=== PATIENT | male | born 1940 | race Caucasian/White ===

== ENCOUNTER 2016-05-25 08:56 | Day surgery (SDC) | payer MEDICARE, OTHER ==
[~2016-05-25 08:56] MED LIST: ACETAMINOPHEN 325 MG TABLET PO PRN; ACETYLCHOLINE CHLORIDE 20 DROP KIT IO PRN; BUPIVACAINE HCL/PF 30 ML VIAL IJ PRN; CYCLOPENTOLATE HCL 20 DROP BTL RIGHTEYE PRN; DEXTROSE 5%-0.5 NORMAL SALINE 1,000 ML IV PRN; EPINEPHrine 1 MG/ML AMPUL IO PRN; HYALURONATE SODIUM 0.4 ML DISP.SYRIN IO PRN; HYALURONATE SODIUM 0.85 ML DISP.SYRIN IO PRN; LIDOCAINE HCL/PF 200 MG/5 ML AMPUL TP PRN; LIDOCAINE HCL/PF 5 ML VIAL IO PRN; NORMAL SALINE 3 ML BOX IV PRN; TETRACAINE HCL 150 DROP BTL OP PRN
--- OUTSIDE RECORDS SUMMARY | 2016-05-25 09:00 | XMS REPORT | Continuity of Care Document ---
:1940 Author Organization [employer] [place] [address] Care Team Providers Name Role Phone Unavailable Primary Care Provider Unavailable Source Comments This disclosure is being made pursuant to the [employer] program and maynot contain all information available regarding this patient.[employer] [facility] [employer] Active Allergies and Adverse Reactions Not on File Current Medications Be aware that medications may not be up to date as of this document. Alwaysverify current medications with the patient. Not on file Active Problems Not on file Social History Tobacco Use Types Packs/Day Years Used Date Never Assessed Plan of Care Health Maintenance Due Date Last Done Comments Tetanus/Pertussis (1 - Tdap) 1961 Well Adult Visit 1992 Zoster Vaccine 60+ 2002 Pneumococcal Low/Medium Risk 65+ (1 of 2 - PCV13) 06/27/2007 Colonoscopy 11/26/2011 11/25/2001 Retired-INFLUENZA VACCINE 11/07/2015 Results from Last 3 Months Not on file
--- OUTSIDE RECORDS SUMMARY | 2016-05-25 09:01 | XMS REPORT | Continuity of Care Document ---
:1940 Author Organization [facility] ([facility]) Address [address] [place] [address] Phone [phone] Care Team Providers Name Role Phone Benji Coley Jessenia Primary Care Provider [phone] Source Comments This disclosure is being made pursuant to the Care Everywhere program, applicable federal and state laws, and may not contain all informaitonavailable regarding this patient.[facility] ([facility]) Active Allergies and Adverse Reactions Allergen Noted Date Severity Reactions Comments Penicillins Urticaria (Hives) Current Medications Prescription Sig. Disp. Refills Start Date End Date Status aspirin 325 mg tablet take 1 Tab by Active mouth daily. gabapentin 300 mg Take 1 Cap (300 mg 90 Cap 08/24/2014 Active capsule total) by mouth 3 times daily metFORMIN 500 mg Take 1 tablet (500 60 tablet 05/31/2015 Active tablet mg total) by mouth 2 times daily with meals. metoPROLol succinate Take 1 tablet (50 30 tablet 11/29/2015 Active 50 mg XL tablet mg total) by mouth daily. LEVOTHYROXINE 200 mcg TAKE ONE TABLET BY 30 tablet 12/25/2015 Active tablet MOUTH IN THE MORNING WITH BREAKFAST doxazosin 4 mg tablet Take 1.5 tablets 45 tablet 01/17/2016 Active (6 mg total) by mouth at bedtime. ATORVASTATIN 40 mg TAKE ONE TABLET BY 30 tablet 03/18/2016 Active tablet MOUTH ONCE DAILY rOPINIRole 2 mg tablet Take 1 tablet (2 30 tablet 03/27/2016 Active mg total) by mouth at bedtime. isosorbide mononitrate Take 1 tablet (60 30 tablet 03/27/2016 Active 60 mg CR tablet mg total) by mouth every morning. TRAZODONE 50 mg tablet TAKE ONE TABLET BY 30 tablet 04/23/2016 Active MOUTH AT BEDTIME SERTraline 100 mg Take 1 tablet (100 30 tablet 04/24/2016 Active tablet mg total) by mouth daily. nitroglycerin 0.[address] 1 tablet 25 tablet 11 05/15/2016 Active SL tablet (0.4 mg total) under the tongue every 5 minutes as needed. Maximum of 3 tablets in 15 minutes. Active Problems Problem Noted Date CAD (coronary artery disease) 01/29/2014 Overview: PCI to OM2 (MARK) in 2003 Myocardial perfusion scan 01/2014: moderate to large size, moderate severity fixed defect within the inferior wall and very small, very mild reversible defect near the apex. Essential hypertension, benign 01/29/2014 Hyperlipidemia 01/29/2014 Hypothyroidism 01/29/2014 Type 2 diabetes mellitus 01/29/2014 Occlusion and stenosis of carotid artery without mention of cerebral 2007 infarction Resolved Problems Problem Noted Date Resolved Date Coronary atherosclerosis of unspecified type of vessel, 08/11/2007 01/29/2014 [place] or graft Coronary atherosclerosis of [place] coronary artery 08/11/2007 01/29/2014 Most Recent Encounters Date Type Specialty Providers Description 05/15/2016 Office Visit Benji Heml Dx: Cataract of right eye Primary A, DO (Primary Dx) 04/24/2016 Office Visit Benji Helm Dx: Chronic pain of left Primary A, DO knee (Primary Dx) 04/23/2016 Refill Benji Helm Dx: Neuropathic pain, leg, Primary A, DO unspecified laterality (Primary Dx) 03/27/2016 Office Visit Benji Helm Dx: Restless legs syndrome Primary A, DO (RLS) (Primary Dx) 03/24/2016 Refill Benji Helm Dx: Neuropathic pain of Primary A, DO both legs (Primary Dx) 03/17/2016 Refill Benji Helm Dx: Pure Primary A, DO hypercholesterolemia (Primary Dx) 03/13/2016 Office Visit Benji Helm Chief Comp: Patient Primary A, DO Reported Reason For Visit Immunizations Name Dates Previously Given Next Due Influenza, PF 03/15/2013 Influenza, quadrivalent PF 01/17/2016,03/15/2015,01/10/2014 Influenza, unspecified 01/10/2014 Pneumococcal Polysaccharide, PPSV23 03/15/2013 (Pneumovax 23) Social History Tobacco Use Types Packs/Day Years Used Date Former Smoker Quit: 03/08/1999 Alcohol Use Drinks/Week oz/Week Comments Yes Last Filed Vital Signs Vital Sign Reading Time Taken Blood Pressure 110/58 05/15/2016 8:27 AM PUBLIC INFORMATION COORDINATOR Pulse 88 05/15/2016 8:27 AM PUBLIC INFORMATION COORDINATOR Temperature 36.1 C (97 F) 05/15/2016 8:27 AM PUBLIC INFORMATION COORDINATOR Respiratory Rate 18 05/15/2016 8:27 AM PUBLIC INFORMATION COORDINATOR Height 1.829 m (6') 07/02/2014 10:13 AM CDT Weight 105.597 kg (232 lb 12.8 oz) 05/15/2016 8:27 AM PUBLIC INFORMATION COORDINATOR Body Mass Index 31.57 05/15/2016 8:27 AM PUBLIC INFORMATION COORDINATOR Oxygen Saturation 98% 07/02/2014 10:13 AM CDT Plan of Care Health Maintenance Due Date Last Done Comments Hepatitis B Vaccine (1 of 3 - 1940 Primary Series) Tdap Vaccine 1953 DIABETIC: Microalbumin 1960 Td Vaccine 1960 Prostate Cancer Screening 1992 Zoster Vaccine 2002 DIABETIC: Cholesterol 12/13/2009 12/13/2008, Additional history exists 08/11/2007, 07/01/2006 Diabetic: Hdl 12/13/2009 12/13/2008, Additional history exists 08/11/2007, 07/01/2006 Diabetic: Ldl 12/13/2009 12/13/2008, Additional history exists 08/11/2007, 07/01/2006 DIABETIC: Triglycerides 12/13/2009 12/13/2008, Additional history exists 08/11/2007, 07/01/2006 DIABETIC: Foot Exam 01/29/2014 DIABETIC: Retinal Eye Exam 01/29/2014 Pneumococcal Vaccine (2 of 2 03/15/2014 03/15/2013 - PCV13) DIABETIC: Hemoglobin A1C 02/23/2015 08/24/2014, 11/25/2005, 10/31/2003 Colonoscopy 01/28/2016 01/27/2006 Influenza Vaccine: Seasonal Completed 01/17/2016, Additional history exists 03/15/2015, 01/10/2014 Results from Last 3 Months Not on file
[2016-05-25] MEDS: PHENYLEPHRINE HCL 50 DROP BTL RIGHTEYE PRN ×3 (09:20→09:48)
[2016-05-25] MEDS: TROPICAMIDE 150 DROP BTL RIGHTEYE PRN ×3 (09:20→09:48)
[2016-05-25] MEDS ORDERED: RINGERS SOLUTION,LACTATED 1,000 ML IV ONE (09:55)
[2016-05-25 11:51] VITALS: BP 120/70
== END 2016-05-25 08:57 | disposition home or self-care (01) ==
LOC: AMB 08:56
PROVIDERS: ATTEND Ophthalmology
PROC: 08RJ3JZ Replacement of Right Lens with Synthetic Substitute, Percutaneous Approach (ICD-10-PCS; principal; 2016-05-25 10:15)
DX: H26.9 Unspecified cataract (principal); I10 Essential (primary) hypertension; E11.9 Type 2 diabetes mellitus without complications; I25.10 Atherosclerotic heart disease of native coronary artery without angina pectoris; E78.5 Hyperlipidemia, unspecified; E03.9 Hypothyroidism, unspecified; Z87.891 Personal history of nicotine dependence; Z68.31 Body mass index [BMI] 31.0-31.9, adult

== ENCOUNTER 2019-01-16 06:32 | Inpatient (IN) ==
--- NOTE | 2018-12-28 14:00 | ANES ---
Anesthesia Pre Procedure Eval HOME MEDICATIONS Aspirin 325 mg PO DAILY 11/01/15 [Last Taken 09/15/18] atorvastatin 20 mg tablet 20 mg PO HS #90 tab 07/28/18 [Last Taken 09/14/18] nitroglycerin 0.4 mg sublingual tablet 0.4 mg SL Q5-15M PRN #30 tab 07/28/18 [Last Taken Unknown] doxazosin 4 mg tablet See Rx Instructions .ROUTE .COMPLEX #135 cap 08/05/18 [Last Taken 09/14/18] oxybutynin chloride 5 mg tablet,extended release 24 hr 5 mg PO DAILY #90 tab 11/09/18 [Last Taken Unknown] levothyroxine 175 mcg tablet 175 mcg PO DAILY #90 cap 11/10/18 [Last Taken Unknown] isosorbide mononitrate 60 mg tablet,extended release 24 hr 60 mg PO DAILY #90 cap 12/05/18 [Last Taken Unknown] metoprolol succinate 50 mg tablet,extended release 24 hr 50 mg PO DAILY #90 cap 12/05/18 [Last Taken Unknown] sertraline 100 mg tablet 100 mg PO DAILY #90 cap 12/05/18 [Last Taken Unknown] gabapentin 600 mg tablet See Rx Instructions .ROUTE .COMPLEX #270 capsule 12/08 [Last Taken Unknown] Ropinirole HCl [Requip Xl] 2 mg PO BID 12/28/18 [Last Taken Unknown] Allergies/Adverse Reactions: Allergies Allergy/AdvReac Type Severity Reaction Status Date / Time Penicillins Allergy Mild Hives Verified 12/28/18 08:32 - Planned Procedure Planned Procedure: Right Arthroplasty Total Hip Medication List Reviewed:: Yes Allergies Verified: Yes Medical History (Last Reviewed 12/28/18 @ 13:59 by Tam Villagomez CRNA) Osteoarthritis of hip (Chronic) Fever blister (Acute) Onset Date: Unknown Sinusitis, acute (Acute) Onset Date: Unknown Benign non-nodular prostatic hyperplasia with lower urinary tract symptoms Onset Date: 2017 Bilateral knee pain Onset Date: Unknown Coronary artery disease Onset Date: Unknown Depression Onset Date: 2016 Diabetes mellitus, type II Onset Date: Unknown Essential hypertension Onset Date: 2017 Hypertension Onset Date: Unknown Hypothyroidism Onset Date: Unknown Insomnia Onset Date: 2017 Iron deficiency Onset Date: 2017 Obesity (BMI 30-39.9) Onset Date: 2017 obesity class I Peripheral neuropathy Onset Date: 2017 Primary osteoarthritis involving multiple joints Onset Date: 2017 Primary osteoarthritis of both knees Onset Date: 2016 RLS (restless legs syndrome) Onset Date: 2016 Vitamin B 12 deficiency Onset Date: 2016 hyperlipidemia Onset Date: Unknown Surgical History (Last Reviewed 12/28/18 @ 13:59 by Tam Villagomez CRNA) History of heart surgery Onset Date: ~1989 History of incision and drainage Onset Date: 2007--with exam under anesthesia rt. leg History of stress test Onset Date: 2017 Stent Onset Date: ~1989 - 1 cholecystecomy Onset Date: 1999 [place] femur fx Onset Date: Unknown pin on left incision and debridement Onset Date: 2007--rt calf abscess knee replacement, left Onset Date: [address] [place] History of right knee joint replacement Onset Date: 2009 [facility] Family History (Last Reviewed 12/28/18 @ 13:59 by Tam Villagomez CRNA) Father Heart disease Skin cancer empha Mother , old age Medical history unknown - Family Anesthesia History Family History:: no untoward family reactions to anesthesia - Airway/Neck/Teeth Denture Type: Full upper, Full lower Neck Exam: limited range of motion Mallampatti Score: 3 Thyromental (T-M) distance: > 6 cm Mandibulo Hyoid distance: > 3 cm - Respiratory Respiratory Physical: lungs clear Smoking Status: Former smoker Sleep Apnea currently treated: No Sleep Apnea by current assessment: No - Cardiovascular Cardiac History: [place], CAD, hypertension Tolerate Activity: Fair Heart Sounds: S1 & S2, Regular - Anesthesia Assessment and Plan ASA Class: PS, III Anesthesia Type Plan: Spinal Planned difficult intubation/equipment available: No
[~2019-01-16 06:32] MED LIST changes: -ACETAMINOPHEN 325 MG TABLET PO PRN; -ACETYLCHOLINE CHLORIDE 20 DROP KIT IO PRN; -BUPIVACAINE HCL/PF 30 ML VIAL IJ PRN; -CYCLOPENTOLATE HCL 20 DROP BTL RIGHTEYE PRN; -DEXTROSE 5%-0.5 NORMAL SALINE 1,000 ML IV PRN; -EPINEPHrine 1 MG/ML AMPUL IO PRN; -HYALURONATE SODIUM 0.4 ML DISP.SYRIN IO PRN; -HYALURONATE SODIUM 0.85 ML DISP.SYRIN IO PRN; -LIDOCAINE HCL/PF 200 MG/5 ML AMPUL TP PRN; -LIDOCAINE HCL/PF 5 ML VIAL IO PRN; +MORPHINE SULFATE 15 MG TABLET.SA PO PRN; -NORMAL SALINE 3 ML BOX IV PRN; +RINGER'S SOLUTION,LACTATED 1,000 ML IV PRN; +ROPIVACAINE HCL/PF 100 MG, EPINEPHrine 0.2 MG, KETOROLAC TROMETHAMINE 30 MG in NORMAL S... IJ PRN; -TETRACAINE HCL 150 DROP BTL OP PRN; +TRANEXAMIC ACID 1,000 MG in NORMAL SALINE 100 ML IV PRN; +VANCOMYCIN HCL 1 GM in DEXTROSE 5 % IN WATER 250 ML IV PRN; +ceFAZolin SODIUM 1 GM VIAL IV PRN
[2019-01-16] MEDS ORDERED: LIDOCAINE HCL 20 ML VIAL ONE (07:37)
[2019-01-16] MEDS ORDERED: fentaNYL CITRATE/PF 50 MCG/ML AMPUL ONE (07:37)
[2019-01-16] MEDS ORDERED: ONDANSETRON HCL/PF 2 MG/ML VIAL ONE (07:38)
[2019-01-16] MEDS ORDERED: PROPOFOL VIAL IV ONE (07:38)
[2019-01-16] MEDS ORDERED: ZOLPIDEM TARTRATE 5 MG TABLET PO PRN (09:58)
[2019-01-16] MEDS ORDERED: MAG HYDROX/ALUMINUM HYD/SIMETH 30 ML UDC PO PRN (09:58)
[2019-01-16] MEDS ORDERED: MORPHINE SULFATE 2 MG/ML DISP.SYRIN IV PRN (09:58)
[2019-01-16] MEDS ORDERED: ONDANSETRON HCL/PF 2 MG/ML VIAL IV PRN (09:58)
[2019-01-16] MEDS ORDERED: ACETAMINOPHEN 500 MG TABLET PO PRN (09:58)
[2019-01-16] MEDS ORDERED: MAGNESIUM HYDROXIDE 30 ML UDC PO PRN (09:58)
[2019-01-16] MEDS ORDERED: diphenhydrAMINE HCL 50 MG/ML VIAL IV PRN (09:58)
[2019-01-16] MEDS ORDERED: DEXTROSE 5%-LACTATED RINGERS 1,000 ML IV PRN (09:58)
[2019-01-16] MEDS ORDERED: NITROGLYCERIN 0.4 MG/TAB BTL SL PRN (10:00)
--- NOTE | 2019-01-16 10:04 | OR ---
Operative Report - Dictated Report Narrative: Date: 01/16/2019 Preoperative diagnosis: Right hip degenerative joint disease. Postoperative diagnosis: Right hip degenerative joint disease. Procedure: Right total hip arthroplasty. Surgeon: Catracho Bradford M.D. Telephone Appointment Clerk: Lio Tellez PA-C (provided an essential set of skilled, educated and assisted with transfer, positioning, prepping, draping, manipulation, traction, irrigation, suturing, and placement of dressings all of which cannot be performed by the available surgical crew) Anesthesia: Spinal and local periarticular joint injection. Complications: None Specimens: Bone. Estimated blood loss: 200 milliliters. Retained implants: Depuy [place] size 5 femoral stem standard offset. Size 58 millimeter outside diameter 3-hole [place] Gription acetabular cup. 58 millimeter outside by 40 millimeter inside diameter highly cross-linked acetabular liner. 40 millimeter diameter +1.5 millimeter cobalt chromium femoral head. Cancellous 6.5mm screw 30 millimeter length Indications: Mr. Mackenzie is a 78-year-old gentleman who has had long-standing right hip pain and arthrosis. This patient was followed in my clinic for period of time with significant complaints of right hip pain consistent with arthritic changes. He failed conservative measures including but not limited to activity modification, passage of time, medications, and other conservative measures. Patient wished to proceed with surgical treatment. The risks, benefits, and alternatives were discussed in clinic. The risks of , blood clots, bleeding, infection, nerve/tendon blood vessel/ injury, malposition of components, dislocation and/or instability of joint, intraoperative fracture, postoperative limited range of motion, persistent pain, failure of components, and need for additional procedures. Patient wished to proceed. Consent was obtained after answering all questions. Procedure: After marking the correct extremity on the floor, the patient was taken to the operating room. A timeout was performed. IV antibiotics consisting of Ancef and vancomycin secondary to MRSA screening were administered prior to the procedure. A spinal anesthetic was induced by anesthesia. A Gonzalez catheter was inserted. The patient was then transitioned to a lateral position on a well-padded pegboard. An axillary roll was placed. The head was in neutral position. The non-operative down leg was well-padded with SCD and DAVID hose in place. The arms were supported and padded to protect from any undue pressure on the bony prominences and nerves. A well-padded anterior and posterior pelvic and chest posts were secured in order to maintain a stable position of the pelvis. This was placed so that the pelvis was perpendicular to the floor. The body was in line with the pelvis. Once it was felt that we had protected all the bony prominences and the patient was well secured with a safety belt as well, the leg was pre-scrubbed with alcohol, prepped and draped in a standard sterile fashion. A standard anterior lateral hip incision was marked out over the greater tr ochanter. Ioban drapes were then placed. The skin incision was then made. Sharp dissection with a scalpel utilizing cautery for hemostasis was carried out down to the gluteus and iliotibial band fascia. This was split in line with the skin incision. The greater trochanter bursa was excised. The anterior and posterior margins of the abductor tendon were identified. The anterior 1/2-1/3 of the tendon was tagged and reflected off the greater trochanter leaving a sleeve of tendon for repair at the completion of the case. This exposed the underlying hip joint capsule. A limb length stitch was placed in the skin and referencedd off a justin on the greater trochanter for evaluation of intraoperative limb lengths. An inverted T-type capsulotomy was made extending this up to the brim of the acetabulum. Using Homans to assist with elevation of the soft tissues off the anterior, superior, and inferior aspects of the femoral neck, the hip was then placed in a figure 4 position and the femoral head was dislocated. With the leg in an externally rotated and adducted position, the cutting flag was utilized in order to justin for a standard femoral neck cut approximately a fingerbreadth above the level of the lesser trochanter. This was done with reference to pre-operative films and overall alignment. This was done while protecting the surrounding soft tissues with Homans. The femoral head was then removed and sized for guidance on preparation of the acetabulum. It was noted that there was loss of articular cartilage on both the femoral head and weightbearing portions of the acetabulum. We then returned the leg to the table and turned our attention to the acetabulum. While protecting the surrounding soft tissues, the labrum and remaining tissue in the fovea were excised using a scalpel and cautery. A series of reamers up to size 58 millimeter were utilized to prepare the acetabulum. The final reamer had good purchase and exposed the bleeding subchondral bone. The acetabulum was then thoroughly irrigated ensuring that all bony and cartilaginous materials were removed, and the final acetabular shell was impacted into place. This was placed in approximately 45 degrees of abduction and 20 degrees of anteversion utilizing the outrigger and body axis for alignment. This had a good press fit. 1 6.5mm cancellous screw was placed in the superior posterior quadrant of the acetabulum. The shell was then thoroughly irrigated and the final polyethylene was impacted into place ensuring that it seated completely. This was then protected with a sponge while we returned our attention to the femur. With the leg in a figure 4 position, utilizing Homans for soft tissue protection, a box cutting osteotome, followed by Charnley awl, followed by serial reamers and broaches were utilized in order to prepare the femur. It was found that a size 5 broach gave good axial and rotational stability. The calcar reamer was utilized in order to clean up the cut edges. The proximal femur was visualized to ensure that there were no signs of fracture. A series of heads and necks were trialed. It was found that a standard offset neck and a + 1.5 femoral head gave good overall stability. There was minimal longitudinal instability. With the leg in the position of sleep, the femoral head was well covered. Hip range of motion was able to reach full extension and external rotation to greater than 75 degrees prior to impingement along the posterior acetabulum. The hip was able to be flexed to greater than 90 degrees with internal rotation greater than 60 degrees prior to anterior impingement. The limb lengths were near equal based on comparison to the contralateral side and the prior placed limb length stitch. At this point it was felt these were the appropriately sized femoral components as well as neck and femoral head. The trial implants were removed. The femur was thoroughly irrigated. The final implants were impacted into place, and the hip was reduced. After ensuring that there was no damage to the proximal femur, the standard periarticular joint injection of ropivacaine, Toradol, and epinephrine were injected into the joint capsule and surrounding soft tissues. Anesthesia then administered intravenous tranexamic acid. The capsule was repaired with a single interrupted #1 Vicryl. The abductor tendon was repaired to the greater trochanter utilizing #5 Ethibond through drill holes. This was oversewn with #1 Vicryl. The fascia was closed with interrupted #1 Vicryl and running strata fix barbed suture. The wounds were thoroughly irrigated as we closed in layers. The deep and subcutaneous fat layers were closed with 0 and 3-0 Vicryl respectively. The subcutaneous tissue was closed with a running 3-0 Vicryl and the skin kelvin. All sponge, needle, blade, and instrument counts were correct prior to closing the wounds. Sterile dressings consisting of xeroform, 4 x 4's, and tape were applied. The patient was awoken and transferred to her hospital bed and then to the postanesthesia care unit in stable condition. Postoperative condition: The plan is to admit to the medical/surgical inpatient floor postoperatively. There will be a projected 1 to 3 day hospital stay. Postoperatively 24 hours of IV antibiotics, pain control, physical therapy, occupational therapy, and medical comanagement will be utilized. Patient will be weightbearing as tolerated with anterior hip precautions. Postoperative films will be obtained in the recovery room.
--- NOTE | 2019-01-16 10:20 | ANES ---
Post Anesthesia Discharge - Transfer of Care Transfer of Care handoff given to nurse: Yes - Discharge from PACU Discharge from PACU when meets criteria: Yes - Discharge to ASU Discharge to ASU-no complications/pt stable: Yes
[2019-01-16] MEDS: KETOROLAC TROMETHAMINE 15 MG/ML VIAL IV SCH ×3 (11:30→23:35)
--- NOTE | 2019-01-16 12:58 | ANES ---
Post Anesthesia Assessment - Vital Signs Vitals: Last Vital Signs Temp 36.4 C 01/16/19 10:28 Pulse 58 L 01/16/19 10:28 Resp 16 01/16/19 10:28 BP 133/83 01/16/19 10:28 Pulse Ox 95 01/16/19 10:28 Airway Patency: Normal - Mental Status Level Of Consciousness: Awake - Pain Level Pain Score: 0 - N/V Assessment Nausea/Vomiting Presence: None Dehydration:: No
[2019-01-16] MEDS: GABAPENTIN 600 MG TABLET PO SCH ×2 (13:59→17:35)
[2019-01-16] MEDS: oxyCODONE HCL/ACETAMINOPHEN 1 TAB TABLET PO PRN ×2 (17:35→22:01)
[2019-01-16] MEDS ORDERED: VANCOMYCIN HCL 1 GM in DEXTROSE 5 % IN WATER 250 ML IV SCH ×2 (19:58)
[2019-01-16] MEDS ORDERED: ROSUVASTATIN CALCIUM 10 MG TABLET PO SCH (21:00)
[2019-01-16] MEDS ORDERED: SENNOSIDES/DOCUSATE SODIUM 1 TAB TABLET PO SCH (21:00)
[2019-01-16] MEDS ORDERED: DOXAZOSIN MESYLATE 2 MG TABLET PO SCH (21:00)
[2019-01-16] MEDS: MORPHINE SULFATE 15 MG TABLET.SA PO SCH (22:01)
[2019-01-16] MEDS: rOPINIRole HCL 1 MG TABLET PO SCH (22:01)
[2019-01-17] MEDS: KETOROLAC TROMETHAMINE 15 MG/ML VIAL IV SCH ×2 (04:42→10:36)
[2019-01-17 06:32] LABS: Hematocrit 36.9 % (42.0-52.0); Hemoglobin 12.3 gm/dL (13.5-18.0); Mean Cell Volume 85.2 fl (78-100); Mean Corpuscular Hemoglobin 28.4 pg (27-31); Mean Corpuscular Hgb Conc 33.3 g/dl (32-36); Mean Platelet Volume 9.7 fl (8-11.3); Platelet Count 104 K/mm3 (150-450); Red Blood Count 4.33 M/mm3 (4.7-6.0); Red Cell Distribution Width 13.7 % (11.5-14.0); White Blood Count 5.8 K/mm3 (4.0-10.5)
[2019-01-17 06:54] LABS: Anion Gap 10.6 mmol/L (6.8-13.8); BUN/Creatinine Ratio 11.2 (9.0-21.6); Calcium * 7.8 mg/dL (7.9-10.9); Estimated Creat Clear 64.6; Potassium 4.6 mmol/L (3.4-4.6)
[2019-01-17] MEDS: oxyCODONE HCL/ACETAMINOPHEN 1 TAB TABLET PO PRN ×2 (06:54→13:34)
[2019-01-17] MEDS ORDERED: LEVOTHYROXINE SODIUM 175 MCG TABLET PO SCH (07:00)
[2019-01-17] MEDS ORDERED: ENOXAPARIN SODIUM 40 MG/0.4 ML SYRG SC SCH (08:58)
[2019-01-17] MEDS ORDERED: SERTRALINE HCL 100 MG TABLET PO SCH (09:00)
[2019-01-17] MEDS ORDERED: METOPROLOL SUCCINATE 50 MG TABLET.SA PO SCH (09:00)
[2019-01-17] MEDS ORDERED: FLU VACC QS2019-20(6MOS UP)/PF 60 MCG/0.5 ML SYRINGE IM ONE (09:00)
[2019-01-17] MEDS ORDERED: DULoxetine HCL 30 MG CAPSULE.SA PO SCH (09:00)
[2019-01-17] MEDS ORDERED: ISOSORBIDE MONONITRATE 60 MG TAB.SR.24H PO SCH (09:00)
[2019-01-17] MEDS ORDERED: OXYBUTYNIN CHLORIDE 5 MG TABLET PO SCH (09:00)
[2019-01-17] MEDS: rOPINIRole HCL 1 MG TABLET PO SCH (09:23)
[2019-01-17] MEDS: GABAPENTIN 600 MG TABLET PO SCH (09:23)
[2019-01-17] MEDS: MORPHINE SULFATE 15 MG TABLET.SA PO SCH (09:28)
--- NOTE | 2019-01-17 11:39 | DS ---
(1) Osteoarthritis of right hip Problem: Chronic (2) Status post right hip replacement Problem: Acute (3) Acute blood loss anemia Problem: Acute (4) Coronary artery disease Problem: Chronic (5) Hyperlipidemia Problem: Chronic (6) Hypertension Problem: Chronic (7) Type 2 diabetes mellitus Problem: Chronic Date of Discharge:: 01/17/19 Description of Stay: Mr. Mackenzie was admitted to the floor after undergoing right total hip arthroplasty. Tolerated this well. Was admitted to the floor postoperatively for 24 hours of IV antibiotics, pain control, medical comanagement, and occupational and physical therapy. OT and PT were consulted to assist with activities of daily living and ambulation. Was made weightbearing as tolerated with range of motion as tolerated. Pain was initially controlled with IV regimen. This was transitioned to oral once tolerating a by mouth intake. Was resumed on home diet and medications. Had a Gonzalez catheter inserted and the operating room which was discontinued on postoperative day 1. Lovenox SCD and DAVID hose were utilized for DVT prophylaxis. Vital signs remained stable to the hospital course. Serial labs were obtained which showed a final hemoglobin of 12.3 grams down from 14.4 g preoperatively . BMP was reviewed and was stable. Physical examination throughout the hospital course showed an extremity that had sensation that was intact to light touch, palpable pulses, a benign wound, motor intact to the toes, ankle, and knee. Once an oral pain regimen was tolerated and physical therapy goals were met, it was felt that they were stable for discharge to home. Instructions: Continue with weightbearing as tolerated and range of motion as tolerated. Keep wound clean and dry. If you note any drainage or for comfort you can cover with dry gauze and tape. Change every 2-3 days as needed. Continue with physical therapy. Resume home diet. Report any fever over 101.5 Fahrenheit, uncontrolled pain, increased drainage, foul odor of drainage, new or increased calf pain or shortness of breath, or any other significant complaints. A 325mg dialy aspirin will be started after finishing anticoagulation if not allergic. Continue with DAVID hose on the operative extremity until instructed otherwise. No driving until instructed otherwise. Follow up in approximately 10-14 days. Procedures Performed: see notes below List Procedures: Right total hip arthroplasty Results and Findings: Lab Pending Results 01/17/19 06:27: WBC 5.8, RBC 4.33 L, Hgb 12.3 L, Hct 36.9 L, MCV 85.2, MCH 28.4, MCHC 33.3, RDW 13.7, Plt Count 104 L, MPV 9.7 01/17/19 06:27: Sodium 134, Plasma Sodium 134, Potassium 4.6, Chloride 102, Carbon Dioxide 26.0, Anion Gap 10.6, BUN 12, Creatinine 1.07, Est GFR (Non-Af Amer) 71, BUN/Creatinine Ratio 11.2, Random Glucose 99, Calcium 7.8 L Discharge Location: Home Disposition: Home self-care Condition: Good Discharge Activity: Activity as tolerated, Weight bearing - Utilizing wheeled walker, Other - With anterior hip precautions Discharge Diet: Consistent carbs, Low salt, Low fat/chol Referrals: Catracho Bradford MD [Staff Physician] - 01/31/19 9:30 am Problem Oriented Discharge Instructions to Patient/Family: Total Hip Replacement, Care After, [id number] Additional Patient Instructions (free text): Physical Therapy appointment at [facility] outpatient rehab on WednesdayJanuary 18 at 9:45 am. Follow up Orthopedic office with Dr. Bradford on 02-07-19 at 9:30am. Prescriptions (Any new or edited meds): Enoxaparin Sodium [Lovenox] 40 mg SC Q24H #7 disp.syrin Transmission Status: Pending to [id number] oxyCODONE HCL/ACETAMINOPHEN [Percocet 5 MG/325 MG] 2 tab PO Q4H PRN #60 tab PRN Reason: Moderate Pain (Pain Scale 4-6) [id number] Sennosides/Docusate Sodium [Senokot-S] 2 tab PO HS #30 tab [facility] Status[id number] Complete Home Medications List: Complete Home Medication List: Aspirin 325 mg PO DAILY 11/01/15 atorvastatin 20 mg tablet 20 mg PO HS #90 tab 07/28/18 nitroglycerin 0.4 mg sublingual tablet 0.4 mg SL Q5-15M PRN #30 tab 07/28/18 doxazosin 4 mg tablet See Rx Instructions .ROUTE .COMPLEX #135 cap 08/05/18 oxybutynin chloride 5 mg tablet,extended release 24 hr 5 mg PO DAILY #90 tab 11/09/18 levothyroxine 175 mcg tablet 175 mcg PO DAILY #90 cap 11/10/18 isosorbide mononitrate 60 mg tablet,extended release 24 hr 60 mg PO DAILY #90 cap 12/05/18 metoprolol succinate 50 mg tablet,extended release 24 hr 50 mg PO DAILY #90 cap 12/05/18 sertraline 100 mg tablet 100 mg PO DAILY #90 cap 12/05/18 gabapentin 600 mg tablet See Rx Instructions .ROUTE .COMPLEX #270 cap 12/08/18 Ropinirole HCl [Requip Xl] 2 mg PO BID 12/28/18 mupirocin 2 % topical ointment See Rx Instructions .ROUTE .COMPLEX #15 g 01/02/19 duloxetine 60 mg capsule,delayed release 60 mg PO DAILY #90 cap 01/09/19 Enoxaparin Sodium [Lovenox] 40 mg SC Q24H #7 disp.syrin 01/17/19 Sennosides/Docusate Sodium [Senokot-S] 2 tab PO HS #30 tab 01/17/19 oxyCODONE HCL/ACETAMINOPHEN [Percocet 5 MG/325 MG] 2 tab PO Q4H PRN #60 tab 01/17/19 Amb Orders for Discharge: PT Evaluation and Treatment* Facility: [facility], Location: Rehabilitation Services
[2019-01-17 13:32] VITALS: BP 109/55
== END 2019-01-17 14:05 | disposition home or self-care (01) | DRG 470 ==
LOC: MS 06:32
PROVIDERS: ADMIT Orthopaedic Surgery; ATTEND Orthopaedic Surgery
DX: M16.11 Unilateral primary osteoarthritis, right hip; I25.10 Atherosclerotic heart disease of native coronary artery without angina pectoris; D62 Acute posthemorrhagic anemia; Z23 Encounter for immunization; E11.42 Type 2 diabetes mellitus with diabetic polyneuropathy; E78.5 Hyperlipidemia, unspecified; I10 Essential (primary) hypertension
CPT/HCPCS: 36415; 73502; 80048; 85027; 90686; 97116; 97161; 97530; J2405

== ENCOUNTER 2019-12-13 11:12 | Inpatient (IN) ==
--- NOTE | 2019-12-13 11:44 | ERNOTE ---
Medical Problem HPI - Narrative Date of Service: 12/13/19 - General Chief Complaint: General Assessment Time Seen by Provider: 12/13/19 11:24 Source: patient Exam Limitations: no limitations - Immun/Allergies/Home Medications Immunizations: IMMUNIZATION HX Immunizations Up to Date Yes History of Influenza Vaccine Yes Hx Pneumococcal Vaccination No Allergies/Adverse Reactions: Allergies Penicillins Allergy (Mild, Verified 10/30/19 13:10) Hives Home Medications: HOME MEDICATIONS Aspirin 325 mg PO DAILY 11/01/15 [Last Taken 09/29/19 08:00] atorvastatin 20 mg tablet 20 mg PO HS #90 tab 04/10/19 [Last Taken Unknown] isosorbide mononitrate 60 mg tablet,extended release 24 hr 60 mg PO DAILY #90 cap 04/10/19 [Last Taken Unknown] levothyroxine 175 mcg tablet 175 mcg PO DAILY #90 cap 04/10/19 [Last Taken Unknown] nitroglycerin 0.4 mg sublingual tablet 0.4 mg SL Q5-15M PRN #30 tab 04/10/19 [Last Taken Unknown] sennosides 8.6 mg-docusate sodium 50 mg tablet 2 tab PO HS #180 tab 04/10/19 [Last Taken Unknown] sertraline 100 mg tablet 100 mg PO DAILY #90 cap 04/10/19 [Last Taken Unknown] duloxetine 60 mg capsule,delayed release 60 mg PO DAILY #180 cap 05/10/19 [Last Taken Unknown] metoprolol succinate 25 mg tablet,extended release 24 hr 25 mg PO DAILY #90 cap 05/10/19 [Last Taken 10/01/19 08:00] ropinirole 2 mg tablet,extended release 24 hr 2 mg PO HS #180 tab 07/19/19 [Last Taken Unknown] doxazosin 4 mg tablet 4 mg PO DAILY #135 tab 11/16/19 [Last Taken Unknown] gabapentin 800 mg tablet 800 mg PO TID #180 cap 11/16/19 [Last Taken Unknown] oxybutynin chloride 5 mg tablet 5 mg PO BID #180 tab 11/16/19 [Last Taken Unknown] - Pain Score Pain Score #1 Pain Score: 0 - History of Present History Narrative: The patient is a 79 year old male who presents for dizziness and unsteady gait which has been present since yesterday. There are associated symptoms of weakness and decreased intake. The patient denies pain. There are no alleviating factors. There are no aggravating factors. Previous treatments have included: none. The past medical history includes: CAD, depression, DM, HTN, hypothyroid, anemia, osteoarthritis and HLD. The social history is positive for former smoker. The patient has had no known ill contacts. Patient states that yesterday he noticed increased dizziness with unsteady gait and frequent falls, patient states that he has fallen 2 times yesterday and then fell again this am. Patient states this am he became feeling unsteady while walking in his home, lost his balance and fell backwards landing on clothes basket. Patient denies striking head, LOC or neck pain. Review of Systems - Review of Systems Constitutional: Present: fatigue. Absent: recent illness, fever, chills EYE: Present: no symptoms reported. Absent: vision changes ENT: Present: no symptoms reported. Absent: ear pain, nasal drainage, sore throat Respiratory: Present: cough. Absent: shortness of breath Cardiology: Present: chest pain Gastrointestinal/Abdominal: Present: no symptoms reported. Absent: nausea, vomiting, diarrhea, abdominal pain Genitourinary: Present: no symptoms reported. Absent: dysuria, decreased urinary output Musculoskeletal: Present: no symptoms reported. Absent: back pain, neck pain, joint pain Skin: Present: no symptoms reported. Absent: rash Neurological: Present: dizziness/light-headedness, weakness. Absent: headache, numbness, tingling All Other Systems: All systems neg except as marked Medical History (Last Reviewed 12/13/19 @ 11:40 by AMANDA Hook) Fever blister (Acute) Onset Date: Unknown Sinusitis, acute (Acute) Onset Date: Unknown Benign non-nodular prostatic hyperplasia with lower urinary tract symptoms Onset Date: 2017 Bilateral knee pain Onset Date: Unknown Coronary artery disease Onset Date: Unknown Diabetes mellitus, type II Onset Date: Unknown Essential hypertension Onset Date: 2017 Hyperlipidemia Onset Date: Unknown Hypothyroidism Onset Date: Unknown Insomnia Onset Date: 2017 Iron deficiency Onset Date: 2017 Obesity (BMI 30-39.9) Onset Date: 2017 obesity class I Peripheral neuropathy Onset Date: 2017 Primary osteoarthritis involving multiple joints Onset Date: 2017 Primary osteoarthritis of both knees Onset Date: 2017 RLS (restless legs syndrome) Onset Date: 2017 Vitamin B 12 deficiency Onset Date: 2017 Depression Onset Date: 2017 History of stress test Onset Date: 2018 Surgical History: Surgical History (Last Reviewed 12/13/19 @ 11:40 by AMANDA Hook) History of inguinal hernia repair Onset Date: 10/02/19 10/02/19 [place]-left w/Bard mesh and plug. H/O total hip arthroplasty Onset Date: 01/16/19 Right total hip arthroplasty. Dr. Bradford History of barium enema Onset Date: 05/02/09 mild to moderate diverticulosis History of cholecystectomy Onset Date: ~1999 [place] History of colonoscopy Onset Date: 05/01/09 1 prior-unknown date. 05/01/09 Pham-poor prep. Diverticulosis. History of elbow surgery Onset Date: 06/02/05 Dr. Vaca-excision of olecranon bursa left elbow w/I&D of chronic septic tissue. History of esophagogastroduodenoscopy (EGD) Onset Date: 04/17/09 1 prior, unknown date. 04/17/09 Pham-negative H.pylori, mild chronic inflammation, antral gastric erosion w/gastritis. History of femur fracture Onset Date: Unknown pin-left History of heart artery stent Onset Date: ~2003 History of incision and drainage Onset Date: 12/20/07 12/16/07, 12/20/07 Arya--with exam under anesthesia right calf abscess History of right knee joint replacement Onset Date: 2009 [place] History of tonsillectomy Onset Date: Unknown Status post left unicompartmental knee replacement Onset Date: 11/01/00 Dr. Vaca Family History: Family History (Last Reviewed 12/13/19 @ 11:40 by AMANDA Hook) Father , age 93 Heart disease Skin cancer Emphysema of lung Hypertension Asthma Arthritis Mother , age 93 Hypertension Arthritis Sister Alive and well 2 sisters Social History: (Last Reviewed 12/13/19 @ 11:40 by AMANDA Hook) Social History: Marital status: lives independently: Yes household members: none number of children: 1 current occupational status: retired Service: Yes branch: [employer] Tobacco: Smoking Status: Former smoker how long ago did patient quit smokin years Alcohol: alcohol intake: former Substance Use: substance use type: does not use Dietary Habits: caffeine: Yes Type: coffee Personal Safety: do you feel safe at home: No victim of physical abuse: No Physical Exam - Physical Exam General Appearance: Present: wd/wn, alert, mild distress Head Exam: Present: normal inspection, no evidence of injury Eye Exam: PERRL: bilateral, EOMI: bilateral, Conjunctivae pale: bilateral Ears, Nose, Throat: Present: normal ENT inspection, normal pharynx Neck: Present: normal inspection, nontender, full range of motion Respiratory: Present: no respiratory distress, normal breath sounds, no accessory muscle use, chest nontender, lungs clear Cardiovascular/Chest: Present: regular rate, rhythm, no murmur Gastrointestinal/Abdominal: Present: normal bowel sounds, nondistended, soft, no organomegaly, tenderness - mild, suprapubic. Absent: guarding, mass Back Exam: Present: no CVA tenderness Extremity Exam: Present: no edema Neurological Exam: Present: alert, oriented, normal mood/affect, no motor/sensory deficits, hog man II-XII nml as tested, normal cerebellar test Skin Exam: Present: normal color, warm/dry Progress - Date and Time Seen: Date and Time: 12/13/19 15:07 Patient arrived to ER with complaint of generalized weakness and dizziness with recurrent frequent falls. CT head negative for acute change as well as normal CXR. Labs unremarkable from baseline except for slight increase to kidney function with Crea 1.66. Patient was administered IV bolus for orthostatic hypotension with slight improvement but remains to feel symptomatic despite fluids. Case was reviewed with and agrees to observation admission for symptomatic hypotension and acute on chronic renal insufficiency. - Results and Orders Patient's Lab Results:: I have reviewed the patient's lab results. - Vital Signs Patient's Vital Signs:: I have reviewed the patient's vital signs. Vital Signs: Vital Signs 12/13/19 11:25 12/13/19 11:29 Temperature 36 C 36 C Pulse Rate 63 63 Respiratory Rate 20 20 Blood Pressure 115/61 115/61 O2 Sat by Pulse Oximetry 96 96 - EKG EKG #1 EKG: NSR - bradycardia, RBBB EKG read: Reviewed by me EKG Comments: No acute ischemic changes or ectopy noted. - X-Ray X-Ray #1 X-Ray: chest Interpretation: Reviewed by me X-ray Comments: IMPRESSION: NO ACUTE CARDIOPULMONARY ABNORMALITY IDENTIFIED. Electronically signed by Benji Tellez D.O.. - CT/Ultrasound CT/Ultrasound Narrative: IMPRESSION: NO ACUTE INTRACRANIAL ABNORMALITY IDENTIFIED. Electronically signed by Benji Tellez D.O.. - Progress/Reassessment Chief Complaint: General Assessment Departure Clinical Impression: Acute on chronic renal insufficiency, Symptomatic hypotension - Departure Disposition: Still a patient Condition: Stable Referrals: Yue Mtz MD [Primary Care Provider] -
[2019-12-13 11:51] LABS: Hematocrit 37.2 % (42.0-52.0); Hemoglobin 12.1 gm/dL (13.5-18.0); Mean Cell Volume 91.9 fl (78-100); Mean Corpuscular Hemoglobin 29.9 pg (27-31); Mean Corpuscular Hgb Conc 32.5 g/dl (32-36); Mean Platelet Volume 9.7 fl (8-11.3); Neutrophil # 5.1 K/mm3 (1.3-6.0); Neutrophil % 78.4 % (42-75.0); Platelet Count 154 K/mm3 (150-450); Red Blood Count 4.05 M/mm3 (4.7-6.0); Red Cell Distribution Width 14.1 % (11.5-14.0); White Blood Count 6.5 K/mm3 (4.0-10.5)
[2019-12-13 11:55] LABS: Prothrombin Time (Patient) 11.9 Seconds (9.1-10.7)
[2019-12-13 11:57] LABS: INR 1.21 INR (0.92-1.08); Partial Thrombolplastin Time 24.8 Seconds (24-32)
[2019-12-13 12:06] LABS: ALT 21 U/L (19-67); AST 30 U/L (0-48); Albumin * 3.7 gm/dl (3.4-5.0); Alkaline Phosphatase * 69 U/L (50-170); Anion Gap 11.6 mmol/L (6.8-13.8); BNP * 78 pg/mL (5-650); BUN/Creatinine Ratio 14.5 (9.0-21.6); Bilirubin, Total 0.7 mg/dL (0.0-1.1); Blood Urea Nitrogen 24 mg/dL (6-23); Ca. Corrected For Albumin 9.1 mg/dL (8.4-10.2); Calcium * 9.2 mg/dL (7.9-10.9); Chloride 102 mmol/L (97-106); Glucose * 121 mg/dL (70-110); Potassium 4.6 mmol/L (3.4-4.6); Sodium 136 mmol/L (132-142); Total Protein 6.2 gm/dL (6.2-8.2)
[2019-12-13 12:10] LABS: Troponin I Less than 0.017 ng/mL (0.00-0.10)
[2019-12-13 13:57] LABS: Urine Bilirubin Negative (NEGATIVE); Urine Blood Negative /ul (NEGATIVE); Urine Ketone Negative (NEGATIVE); Urine Nitrite Negative (NEGATIVE); Urine Protein Negative (NEGATIVE); Urine Specific Gravity 1.025 SP.GR. (1.005-1.030); Urine Urobilinogen Normal (NORMAL)
[2019-12-13] MEDS ORDERED: NORMAL SALINE 1,000 ML IV PRN (14:01)
[2019-12-13 14:08] LABS: Urine Appearance Clear (CLEAR); Urine Color Yellow
[2019-12-13 14:09] LABS: Urine Bacteria TRACE; Urine RBC TRACE /hpf (0-5); Urine WBC TRACE /hpf (0-5)
[2019-12-13] MEDS ORDERED: NORMAL SALINE 1,000 ML IV ONE ×2 (15:41→17:00)
[2019-12-13] MEDS ORDERED: ACETAMINOPHEN 500 MG TABLET PO PRN (16:34)
[2019-12-13] MEDS ORDERED: MECLIZINE HCL 25 MG TABLET PO PRN (16:36)
[2019-12-13] MEDS ORDERED: NITROGLYCERIN 0.4 MG/TAB BTL SL PRN (16:38)
[2019-12-13] MEDS ORDERED: GABAPENTIN 400 MG CAPSULE PO SCH (17:00)
--- NOTE | 2019-12-13 17:01 | HP ---
Chief Complaint - Chief Complaint Date of Service: 12/13/19 Time of Service: 16:49 Chief Complaint: I have been dizzy and falling over the past several days. History of Present Illness: 79-year-old male with past medical history of hyperlipidemia, CAD, type 2 diabetes, obesity, hypertension, depression, peripheral neuropathy, CKD 3, BPH, was evaluated in the ER for ongoing generalized weakness dizziness and multiple falls over the past several days. Patient has a history of issues with balance and underwent a knee replacement last year and since then he reports not being stable on his feet. He has been through multiple rounds of physical therapy which has helped stabilize his ambulation, however over the past several days reports feeling weak and at times dizzy. The patient reports 2 falls that occurred yesterday and another this morning when he attempted to go to the bathroom from his bed. The patient reports falling backwards and onto a close hamper and denies trauma to his head. He became concerned enough to come to the ER. Once in the ER the patient underwent a head CT which was negative for any acute findings and EKG which was non-concerning and labs the only demonstrated a mild worsening of his renal function. Upon questioning the patient says he has been drinking fluids but he is not sure if he has been drinking enough, his appetite has also been poor. It is possible that the patient is behind in fluid causing him to be dehydrated which would explain the orthostatic hypotension detected in the ER and dizziness. I also reviewed his medications and it is very possible that the patient is having adverse effects from polypharmacy so on discharge will review and cut back on some of his meds. I am particularly concerned about high doses of gabapentin and Cymbalta which were prescribed to treat neuropathic pain due to peripheral neuropathy in the patient's feet. He reports these medications help him but it was explained to him that it is possible that they are causing his fall, so we will discuss this further on admission. Medical History (Last Reviewed 12/13/19 @ 16:10 by Rocio Enriquez RN) Fever blister (Acute) Onset Date: Unknown Sinusitis, acute (Acute) Onset Date: Unknown Benign non-nodular prostatic hyperplasia with lower urinary tract symptoms Onset Date: 2016 Bilateral knee pain Onset Date: Unknown Coronary artery disease Onset Date: Unknown Diabetes mellitus, type II Onset Date: Unknown Essential hypertension Onset Date: 2016 Hyperlipidemia Onset Date: Unknown Hypothyroidism Onset Date: Unknown Insomnia Onset Date: 2017 Iron deficiency Onset Date: 2017 Obesity (BMI 30-39.9) Onset Date: 2017 obesity class I Peripheral neuropathy Onset Date: 2017 Primary osteoarthritis involving multiple joints Onset Date: 2017 Primary osteoarthritis of both knees Onset Date: 2017 RLS (restless legs syndrome) Onset Date: 2017 Vitamin B 12 deficiency Onset Date: 2017 Depression Onset Date: 2017 History of stress test Onset Date: 2018 Surgical History: Surgical History (Last Reviewed 12/13/19 @ 16:11 by Rocio Enriquez RN) History of inguinal hernia repair Onset Date: 10/02/19 10/02/19 [place]-left w/Bard mesh and plug. H/O total hip arthroplasty Onset Date: 01/16/19 Right total hip arthroplasty. Dr. Bradford History of barium enema Onset Date: 05/02/09 mild to moderate diverticulosis History of cholecystectomy Onset Date: ~1999 [place] History of colonoscopy Onset Date: 05/01/09 1 prior-unknown date. 05/01/09 Pham-poor prep. Diverticulosis. History of elbow surgery Onset Date: 06/02/05 Dr. Vaca-excision of olecranon bursa left elbow w/I&D of chronic septic tissue. History of esophagogastroduodenoscopy (EGD) Onset Date: 04/17/09 1 prior, unknown date. 04/17/09 Pham-negative H.pylori, mild chronic inflammation, antral gastric erosion w/gastritis. History of femur fracture Onset Date: Unknown pin-left History of heart artery stent Onset Date: ~2003 History of incision and drainage Onset Date: 12/20/07 12/16/07, 12/20/07 Tinguely--with exam under anesthesia right calf abscess History of right knee joint replacement Onset Date: 2009 [place] History of tonsillectomy Onset Date: Unknown Status post left unicompartmental knee replacement Onset Date: 11/01/00 Dr. Vaca Family History: Family History (Last Reviewed 12/13/19 @ 16:11 by Rocio Enriquez RN) Father , age 93 Heart disease Skin cancer Emphysema of lung Hypertension Asthma Arthritis Mother , age 93 Hypertension Arthritis Sister Alive and well 2 sisters Social History: (Last Reviewed 12/13/19 @ 16:12 by Rocio Enriquez RN) Social History: Marital status: lives independently: Yes household members: none number of children: 1 current occupational status: retired Service: Yes branch: [employer] Tobacco: Smoking Status: Former smoker how long ago did patient quit smokin years Alcohol: alcohol intake: former Substance Use: substance use type: does not use Dietary Habits: caffeine: Yes Type: coffee Personal Safety: do you feel safe at home: No victim of physical abuse: No Peds Patient Hx - Developmental: No Pertinent Hx Peds Patient Hx - Medical: No Pertinent Hx Peds Patient Hx - Cardiac/Respiratory: No Pertinent Hx Peds Patient Hx - Surgical: No Surgical History Patient History - Cancer: No Hx of Cancer Review Of Systems (GEN) - Review of Systems Generalized/Overall Review: Present: Weakness EENTM: Present: No Symptoms Reported Respiratory: Present: No Symptoms Reported Cardiac: Present: No Symptoms Reported Abdominal: Present: No Symptoms Reported Genitourinary: Present: No Symptoms Reported Musculoskeletal: Present: No Symptoms Reported Neurological: Present: Weakness, Other - Chronic neuropathic pain in lower extremities Skin: Present: No Symptoms Reported Endocrine: Present: No Symptoms Reported Immunizations: IMMUNIZATION HX Immunizations Up to Date Yes History of Influenza Vaccine Yes Hx Pneumococcal Vaccination No Allergies/Adverse Reactions: Allergies Allergy/AdvReac Type Severity Reaction Status Date / Time Penicillins Allergy Mild Hives Verified 10/30/19 13:10 Home Medications: HOME MEDICATIONS Aspirin 325 mg PO DAILY 11/01/15 [Last Taken 09/29/19 08:00] atorvastatin 20 mg tablet 20 mg PO HS #90 tab 04/10/19 [Last Taken Unknown] isosorbide mononitrate 60 mg tablet,extended release 24 hr 60 mg PO DAILY #90 cap 04/10/19 [Last Taken Unknown] levothyroxine 175 mcg tablet 175 mcg PO DAILY #90 cap 04/10/19 [Last Taken Unknown] nitroglycerin 0.4 mg sublingual tablet 0.4 mg SL Q5-15M PRN #30 tab 04/10/19 [Last Taken Unknown] sennosides 8.6 mg-docusate sodium 50 mg tablet 2 tab PO HS #180 tab 04/10/19 [Last Taken Unknown] sertraline 100 mg tablet 100 mg PO DAILY #90 cap 04/10/19 [Last Taken Unknown] duloxetine 60 mg capsule,delayed release 60 mg PO DAILY #180 cap 05/10/19 [Last Taken Unknown] metoprolol succinate 25 mg tablet,extended release 24 hr 25 mg PO DAILY #90 cap 05/10/19 [Last Taken 10/01/19 08:00] ropinirole 2 mg tablet,extended release 24 hr 2 mg PO HS #180 tab 07/19/19 [Last Taken Unknown] doxazosin 4 mg tablet 4 mg PO DAILY #135 tab 11/16/19 [Last Taken Unknown] gabapentin 800 mg tablet 800 mg PO TID #180 cap 11/16/19 [Last Taken Unknown] oxybutynin chloride 5 mg tablet 5 mg PO BID #180 tab 11/16/19 [Last Taken Unknown] Exam - Exam Vital Signs: Vital Signs - Last Taken Temp 36 C 12/13/19 11:29 Pulse 62 12/13/19 15:00 Resp 16 12/13/19 15:00 BP 94/52 12/13/19 15:00 Pulse Ox 100 12/13/19 15:00 Constitutional: Present: Alert, Oriented x3, Cooperative, Well developed, Well nourished, No distress, Elderly, Obese ENT Exam: Present: normal ENT inspection, hearing grossly normal, pharynx normal, TMs normal Eye Exam: bilateral eye: normal inspection, PERRL, EOMI Neck: Present: non-tender, full range of motion, supple, normal inspection, trachea midline Back Exam: Present: normal inspection, no CVA tenderness, no vertebral tenderness Breasts: Present: Exam deferred, Nontender Respiratory: Present: chest non-tender, lungs clear, normal breath sounds, no respiratory distress, no accessory muscle use Cardiovascular/Chest: Present: normal peripheral pulses, regular rate, rhythm, no chest tenderness, no edema, no gallop, no JVD, no murmur, no rub Peripheral Pulses: dorsalis-pedis (R): 2+, dorsalis-pedis (L): 2+ Abdomen: Present: Normal bowel sounds, soft, nontender, nondistended, no rebound tenderness, no hepatospenomegaly, no masses, obese /Rectal: Present: Exam deferred Extremity: Present: normal range of motion, non-tender, normal inspection, no pedal edema, no calf tenderness, normal capillary refill, pelvis stable Skin Exam: Present: normal color, warm/dry, no cyanosis Lymphatic: Present: no adenopathy 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, no motor/sensory deficits, alert, normal mood/affect, oriented x 3 Appearance: Present: appropriate appearance, appropriate insight, neat, no memory impairment Eye contact: Present: cooperative, good eye contact, normal speech Thoughts: Present: normal thought pattern, no apparent hallucination Diagnostic Studies: Abnormal Lab Results 12/13/19 12/13/19 12/13/19 Range/Units 11:45 11:45 11:45 RBC 4.05 L (4.7-6.0) M/mm3 Hgb 12.1 L (13.5-18.0) gm/dL Hct 37.2 L (42.0-52.0) % RDW 14.1 H (11.5-14.0) % Neutrophils % 78.4 H (42-75.0) % Lymphocytes % 15.3 L (20-51) % Lymphocytes # 0.99 L (1.5-3.5) k/mm3 PT 11.9 H (9.1-10.7) Seconds INR (Anticoag Therapy) 1.21 H (0.92-1.08) INR BUN 24 H D (6-23) mg/dL Creatinine 1.66 H (0.4-1.4) mg/dL Est GFR (Non-Af Amer) 43 L D (60-130) mL/min Random Glucose 121 H (70-110) mg/dL Laboratory Results WBC 6.5 K/mm3 (4.0-10.5) 12/13/19 11:45 RBC 4.05 M/mm3 (4.7-6.0) L 12/13/19 11:45 Hgb 12.1 gm/dL (13.5-18.0) L 12/13/19 11:45 Hct 37.2 % (42.0-52.0) L 12/13/19 11:45 MCV 91.9 fl (78-100) 12/13/19 11:45 MCH 29.9 pg (27-31) 12/13/19 11:45 MCHC 32.5 g/dl (32-36) 12/13/19 11:45 RDW 14.1 % (11.5-14.0) H 12/13/19 11:45 Plt Count 154 K/mm3 (150-450) 12/13/19 11:45 MPV 9.7 fl (8-11.3) 12/13/19 11:45 Immature Gran % (Auto) 0.30 % (0.001-0.429) 12/13/19 11:45 Immature Gran # (Auto) 0.02 K/mm3 (0.000-0.0310) 12/13/19 11:45 Neutrophils % 78.4 % (42-75.0) H 12/13/19 11:45 Lymphocytes % 15.3 % (20-51) L 12/13/19 11:45 Monocytes % 4.9 % (0.0-9) 12/13/19 11:45 Eosinophils % 0.8 % (0.0-3.0) 12/13/19 11:45 Basophils % 0.3 % (0.0-1.0) 12/13/19 11:45 Nucleated RBC % 0.0 k/mm3 (0-1) 12/13/19 11:45 Neutrophils # 5.1 K/mm3 (1.3-6.0) 12/13/19 11:45 Lymphocytes # 0.99 k/mm3 (1.5-3.5) L 12/13/19 11:45 Monocytes # 0.3 k/mm3 (0.0-1.0) 12/13/19 11:45 Eosinophils # 0.1 k/mm3 (0.0-0.7) 12/13/19 11:45 Absolute Basophils 0.0 k/mm3 (0.0-0.1) 12/13/19 11:45 PT 11.9 Seconds (9.1-10.7) H 12/13/19 11:45 INR (Anticoag Therapy) 1.21 INR (0.92-1.08) H 12/13/19 11:45 PTT ([place]rett) 24.8 Seconds (24-32) 12/13/19 11:45 Sodium 136 mmol/L (132-142) 12/13/19 11:45 Plasma Sodium 136 mmol/L (130-142) 12/13/19 11:45 Potassium 4.6 mmol/L (3.4-4.6) 12/13/19 11:45 Chloride 102 mmol/L (97-106) 12/13/19 11:45 Carbon Dioxide 27.0 mmol/L (24-32.6) 12/13/19 11:45 Anion Gap 11.6 mmol/L (6.8-13.8) 12/13/19 11:45 BUN 24 mg/dL (6-23) H D 12/13/19 11:45 Creatinine 1.66 mg/dL (0.4-1.4) H 12/13/19 11:45 Est GFR (Non-Af Amer) 43 mL/min (60-130) L D 12/13/19 11:45 BUN/Creatinine Ratio 14.5 (9.0-21.6) 12/13/19 11:45 Random Glucose 121 mg/dL (70-110) H 12/13/19 11:45 Lactic Acid, Venous 1.4 mmol/L (0.4-2.0) 12/13/19 11:45 Calcium 9.2 mg/dL (7.9-10.9) 12/13/19 11:45 Calcium Adj for Albumin 9.1 mg/dL (8.4-10.2) 12/13/19 11:45 Total Bilirubin 0.7 mg/dL (0.0-1.1) 12/13/19 11:45 AST 30 U/L (0-48) 12/13/19 11:45 ALT 21 U/L (19-67) 12/13/19 11:45 Alkaline Phosphatase 69 U/L (50-170) 12/13/19 11:45 Troponin I Less than 0.017 ng/mL (0.00-0.10) 12/13/19 11:45 B-Natriuretic Peptide 78 pg/mL (5-650) 12/13/19 11:45 Total Protein 6.2 gm/dL (6.2-8.2) 12/13/19 11:45 Albumin 3.7 gm/dl (3.4-5.0) 12/13/19 11:45 Urine Color Yellow 12/13/19 13:40 Urine Appearance Clear (CLEAR) 12/13/19 13:40 Urine pH 6.0 pH (5.0-7.0) 12/13/19 13:40 Ur Specific [place] 1.025 SP.GR. (1.005-1.030) 12/13/19 13:40 Urine Protein Negative mg/dL (NEGATIVE) 12/13/19 13:40 Urine Glucose (UA) Negative mg/dL (NEGATIVE) 12/13/19 13:40 Urine Ketones Negative mg/dL (NEGATIVE) 12/13/19 13:40 Urine Blood Negative /ul (NEGATIVE) 12/13/19 13:40 Urine Nitrate Negative (NEGATIVE) 12/13/19 13:40 Urine Bilirubin Negative mg/dl (NEGATIVE) 12/13/19 13:40 Urine Urobilinogen Normal EU/dl (NORMAL) 12/13/19 13:40 Ur Leukocyte Esterase Negative /ul (NEGATIVE) 12/13/19 13:40 Urine RBC Trace /hpf (0-5) 12/13/19 13:40 Urine WBC Trace /hpf (0-5) 12/13/19 13:40 Ur Epithelial Cells Trace /hpf (0-5) 12/13/19 13:40 Urine Bacteria Trace (NONE) 12/13/19 13:40 Urine Culture Comments No culture indicated 12/13/19 13:40 Assessment/Plan - Narrative Narrative: Patient was evaluated medical chart was reviewed and decision to admit for orthostatic hypotension and generalized weakness was made. We will keep the patient overnight for close monitoring and treat him with IV fluids to rehydrate him. Consultation for physical therapy for evaluation of the patient's gait has been placed. I also ordered some meclizine to address his dizziness/vertigo. All antihypertensives have been held due to ongoing hypotension as well as Cymbalta for possible cause of the dizziness. - Assessment/Plan (1) Acute on chronic renal insufficiency Problem: Acute (2) Symptomatic hypotension Problem: Acute (3) Coronary artery disease Problem: Chronic (4) Type 2 diabetes mellitus Problem: Chronic Qualifiers: Diabetes mellitus senior care insulin use: without senior care use (5) Peripheral neuropathy Problem: Chronic (6) Dizziness Problem: Acute (7) Dehydration Problem: Acute (8) Generalized weakness Problem: Acute
[2019-12-13] MEDS ORDERED: FLU VACC QS2020-21(6MOS UP)/PF 60 MCG/0.5 ML SYRINGE IM ONE (19:00)
[2019-12-13] MEDS: ROSUVASTATIN CALCIUM 10 MG TABLET PO SCH (21:38)
[2019-12-13] MEDS: MELATONIN 3,000 MCG TABLET PO SCH (21:38)
[2019-12-13] MEDS: OXYBUTYNIN CHLORIDE 5 MG TABLET PO SCH (21:38)
[2019-12-13] MEDS: SENNOSIDES/DOCUSATE SODIUM 1 TAB TABLET PO SCH (21:39)
[2019-12-13] MEDS: Ropinirole Hcl [Requip Xl] 2 MG PO SCH (21:39)
[2019-12-14 06:36] LABS: Albumin * 3.1 gm/dl (3.4-5.0); Anion Gap 9.8 mmol/L (6.8-13.8); Bilirubin, Total 0.4 mg/dL (0.0-1.1); Ca. Corrected For Albumin 8.6 mg/dL (8.4-10.2); Calcium * 8.2 mg/dL (7.9-10.9); Carbon Dioxide 26.7 mmol/L (24-32.6); Potassium 4.5 mmol/L (3.4-4.6); Total Protein 5.1 gm/dL (6.2-8.2)
[2019-12-14] MEDS: LEVOTHYROXINE SODIUM 175 MCG TABLET PO SCH (06:36)
[2019-12-14] MEDS: METOPROLOL SUCCINATE 25 MG TABLET.SA PO SCH (08:50)
--- NOTE | 2019-12-14 09:05 | PN ---
Subjective - Date and Time Seen Date: 12/14/19 Time: 08:57 Subjective Narrative: I am still dizzy and falling over. Objective Objective Narrative: 79-year-old male admitted for symptomatic orthostatic hypotension and ELLY was evaluated at bedside was found to be afebrile and in no acute distress. The patient continues to have symptoms due to his hypotension, a near fall was reported as morning when the patient attempted to go to the bathroom. He says that when he stands or tries to ambulate he becomes unstable on his feet and feels dizzy. This is most likely due to the ongoing hypotension despite multiple liters of IV fluids. Upon questioning the patient admits that he has not been eating or drinking the way she had over the past week which indicates possible dehydration that led to his hypertension. We will continue to hydrate him with additional bags of IV fluids. Labs this morning revealed slight improvement of his renal function with a bump up in GFR however he is still not at his baseline. This would also benefit with additional IV hydration. All antihypertensives except his beta-duy was held yesterday however given the ongoing hypotension we will hold that as well. We are also reducing his dose of gabapentin to decrease the risk of falls. The patient was evaluated by PT this morning who reports that the patient has significant weakness in both lower extremities and is a high fall risk, they are recommending additional days in the hospital to address the problems with his gait instability especially since it is not safe for him to go home alone. - Vitals Vitals: Last Vital Signs Temp 36.7 C 12/14/19 06:52 Pulse 70 12/14/19 08:50 Resp 18 12/14/19 06:52 BP 90/61 12/14/19 08:50 Pulse Ox 95 12/14/19 06:52 - Abnormal Lab Findings Abnormal Lab Findings: Abnormal Lab Results 12/13/19 12/13/19 12/13/19 Range/Units 11:45 11:45 11:45 RBC 4.05 L (4.7-6.0) M/mm3 Hgb 12.1 L (13.5-18.0) gm/dL Hct 37.2 L (42.0-52.0) % RDW 14.1 H (11.5-14.0) % Neutrophils % 78.4 H (42-75.0) % Lymphocytes % 15.3 L (20-51) % Lymphocytes # 0.99 L (1.5-3.5) k/mm3 PT 11.9 H (9.1-10.7) Seconds INR (Anticoag Therapy) 1.21 H (0.92-1.08) INR BUN 24 H D (6-23) mg/dL Creatinine 1.66 H (0.4-1.4) mg/dL Est GFR (Non-Af Amer) 43 L D (60-130) mL/min Random Glucose 121 H (70-110) mg/dL Total Protein (6.2-8.2) gm/dL Albumin (3.4-5.0) gm/dl 12/14/19 Range/Units 06:10 RBC (4.7-6.0) M/mm3 Hgb (13.5-18.0) gm/dL Hct (42.0-52.0) % RDW (11.5-14.0) % Neutrophils % (42-75.0) % Lymphocytes % (20-51) % Lymphocytes # (1.5-3.5) k/mm3 PT (9.1-10.7) Seconds INR (Anticoag Therapy) (0.92-1.08) INR BUN (6-23) mg/dL Creatinine 1.62 H (0.4-1.4) mg/dL Est GFR (Non-Af Amer) 44 L (60-130) mL/min Random Glucose (70-110) mg/dL Total Protein 5.1 L (6.2-8.2) gm/dL Albumin 3.1 L (3.4-5.0) gm/dl - Exam Constitutional: Present: Alert, Oriented x3, Cooperative, Well developed, No distress, Elderly, Morbidly obese ENT Exam: Present: normal ENT inspection, hearing grossly normal, pharynx normal, TMs normal Neck: Present: non-tender, full range of motion, supple, normal inspection, trachea midline Breasts: Present: Exam deferred, Nontender Respiratory: Present: chest non-tender, lungs clear, normal breath sounds, no respiratory distress, no accessory muscle use Cardiovascular/Chest: Present: normal peripheral pulses, regular rate, rhythm, no chest tenderness, no edema, no gallop, no JVD, no murmur, no rub Abdomen: Present: Normal bowel sounds, soft, nontender, nondistended, no rebound tenderness, no hepatospenomegaly, no masses, obese /Rectal: Present: Exam deferred Extremity: Present: normal range of motion, non-tender, normal inspection, no pedal edema, no calf tenderness, normal capillary refill, pelvis stable Skin Exam: Present: normal color, warm/dry, no cyanosis Lymphatic: Present: no adenopathy 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 Additional bags of IV fluids have been ordered and follow-up CMP was ordered for tomorrow morning to reevaluate electrolytes as well as renal function. In the meantime we will continue to hold his antihypertensives and reduce his gabapentin. He will also continue to work with in-hospital physical therapy to address problems with his gait and balance. - Problems/Diagnosis (1) Acute on chronic renal insufficiency Problem: Acute (2) Symptomatic hypotension Problem: Acute (3) Coronary artery disease Problem: Chronic (4) Type 2 diabetes mellitus Problem: Chronic Qualifiers: Diabetes mellitus longterm insulin use: without tank terminal gauger use (5) Peripheral neuropathy Problem: Chronic (6) Dizziness Problem: Acute (7) Dehydration Problem: Acute (8) Generalized weakness Problem: Acute (9) Gait abnormality Problem: Acute (10) Poor balance Problem: Acute
[2019-12-14] MEDS: GABAPENTIN 600 MG TABLET PO SCH ×2 (09:20→20:05)
[2019-12-14] MEDS: NORMAL SALINE 2,000 ML IV ONE ×2 (09:20→16:27)
[2019-12-14] MEDS: SERTRALINE HCL 100 MG TABLET PO SCH (09:20)
[2019-12-14] MEDS: ASPIRIN 325 MG TABLET.DR PO SCH (09:20)
[2019-12-14] MEDS: OXYBUTYNIN CHLORIDE 5 MG TABLET PO SCH ×2 (09:20→20:05)
[2019-12-14] MEDS: ROSUVASTATIN CALCIUM 10 MG TABLET PO SCH (20:05)
[2019-12-14] MEDS: SENNOSIDES/DOCUSATE SODIUM 1 TAB TABLET PO SCH (20:05)
[2019-12-14] MEDS: Ropinirole Hcl [Requip Xl] 2 MG PO SCH (20:06)
[2019-12-14] MEDS: MELATONIN 3,000 MCG TABLET PO SCH (20:06)
[2019-12-15 07:00] LABS: Albumin * 3.1 gm/dl (3.4-5.0); Anion Gap 10.1 mmol/L (6.8-13.8); BUN/Creatinine Ratio 12.6 (9.0-21.6); Bilirubin, Total 0.5 mg/dL (0.0-1.1); Ca. Corrected For Albumin 8.4 mg/dL (8.4-10.2); Carbon Dioxide 25.4 mmol/L (24-32.6); Potassium 4.5 mmol/L (3.4-4.6); Total Protein 5.4 gm/dL (6.2-8.2)
--- NOTE | 2019-12-15 09:05 | DS ---
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 Patient has responded favorably to the treatments, he received IV hydration with normal saline and his antihypertensives were held. This morning he reports resolved dizziness and reduced gait instability. This confirm a suspicion that the patient was significantly dehydrated due to inadequate oral fluid intake over the past few days. He was also evaluated by physical therapy who has discharged him from inpatient PT although they feel that there is still a risk of falls. Therefore as a precaution we will discharge patient home but with a low dose of his gabapentin and we have also discontinued the Cymbalta due to both medications association with increased risk of falls. It was explained to the patient that his neuropathic pain will not to be treated with a low-dose of gabapentin in conjunction with acetaminophen to be taken on a as needed basis. Patient's renal function has improved as well as his blood pressure but we will send him home with an order for BMP to be repeated in several days. We will also schedule him for follow-up on an outpatient basis with myself in the internal medicine clinic. He also agreed to home health services with nursing and PT. Mr. Francois is homebound due to significant issues with his gait and his mobility. He has a need for halfway for monitoring of his blood pressure and management of his medications and he also has a need for physical therapy to address the issues with balance and weakness in his lower extremities. The need for home health care skilled services is directly related to the time spent [id number] with the patient. Procedures Performed: none Results and Findings: Lab Pending Results 12/13/19 11:45: WBC 6.5, RBC 4.05 L, Hgb 12.1 L, Hct 37.2 L, MCV 91.9, MCH 29.9, MCHC 32.5, RDW 14.1 H, Plt Count 154, MPV 9.7, Immature Gran % (Auto) 0.30, Immature Gran # (Auto) 0.02, Neutrophils % 78.4 H, Lymphocytes % 15.3 L, Monocytes % 4.9, Eosinophils % 0.8, Basophils % 0.3, Nucleated RBC % 0.0, Neutrophils # 5.1, Lymphocytes # 0.99 L, Monocytes # 0.3, Eosinophils # 0.1, Absolute Basophils 0.0 12/13/19 11:45: PT 11.9 H, INR (Anticoag Therapy) 1.21 H, PTT ([place]) 24.8 12/13/19 11:45: Sodium 136, Plasma Sodium 136, Potassium 4.6, Chloride 102, Carbon Dioxide 27.0, Anion Gap 11.6, BUN 24 H D, Creatinine 1.66 H, Est GFR (Non-Af Amer) 43 L D, BUN/Creatinine Ratio 14.5, Random Glucose 121 H, Calcium 9.2, Calcium Adj for Albumin 9.1, Total Bilirubin 0.7, AST 30, ALT 21, Alkaline Phosphatase 69, Troponin I Less than 0.017, B-Natriuretic Peptide 78, Total Protein 6.2, Albumin 3.7 12/13/19 11:45: Lactic Acid, Venous 1.4 12/13/19 13:40: Urine Color Yellow, Urine Appearance Clear, Urine pH 6.0, Ur Specific [place] 1.025, Urine Protein Negative, Urine Glucose (UA) Negative, Urine Ketones Negative, Urine Blood Negative, Urine Nitrate Negative, Urine Bilirubin Negative, Urine Urobilinogen Normal, Ur Leukocyte Esterase Negative, Urine RBC Trace, Urine WBC Trace, Ur Epithelial Cells Trace, Urine Bacteria Trace, Urine Culture Comments No culture indicated 12/14/19 06:10: Sodium 136, Plasma Sodium 136, Potassium 4.5, Chloride 104, Carbon Dioxide 26.7, Anion Gap 9.8, BUN 21, Creatinine 1.62 H, Est GFR (Non-Af Amer) 44 L, BUN/Creatinine Ratio 13.0, Random Glucose 100, Calcium 8.2, Calcium Adj for Albumin 8.6, Total Bilirubin 0.4, AST 28, ALT 19, Alkaline Phosphatase 61, Total Protein 5.1 L, Albumin 3.1 L 12/15/19 06:41: Sodium 136, Plasma Sodium 136, Potassium 4.5, Chloride 105, Carbon Dioxide 25.4, Anion Gap 10.1, BUN 18, Creatinine 1.43 H, Est GFR (Non-Af Amer) 51 L, BUN/Creatinine Ratio 12.6, Random Glucose 90, Calcium 8.0, Calcium Adj for Albumin 8.4, Total Bilirubin 0.5, AST 28, ALT 19, Alkaline Phosphatase 63, Total Protein 5.4 L, Albumin 3.1 L Discharge Location: Home Disposition: Home Health Service Home Health Agency: [facility] Condition: Stable Face to Face Encounter completed per [facility] Guidelines: Yes Discharge Activity: Activity as tolerated Discharge Diet: Consistent carbs Additional Patient Instructions (free text): Please schedule a TCM appointment at discharge. [facility] Home Health new at discharge- fax discharge summary, order, and medication list and call report. Prescriptions (Any new or edited meds): Meclizine HCl [Antivert] 25 mg PO QID PRN #40 tab PRN Reason: Vertigo Transmission Status: Pending to [id number] Isosorbide Mononitrate [Imdur] 30 mg PO DAILY #30 cap Transmission Status: Pending to [facility] Melatonin 3,000 mcg PO HS PRN #30 tab PRN Reason: Insomnia Transmission Status: Pending to [facility] Metoprolol Succinate 25 mg PO DAILY #30 Gabapentin [Neurontin] 600 mg PO BID #60 tab Transmission Status: Pending to [facility] Complete Home Medications List: Complete Home Medication List: Aspirin 325 mg PO DAILY 11/01/15 atorvastatin 20 mg tablet 20 mg PO HS #90 tab 04/10/19 levothyroxine 175 mcg tablet 175 mcg PO DAILY #90 cap 04/10/19 nitroglycerin 0.4 mg sublingual tablet 0.4 mg SL Q5-15M PRN #30 tab 04/10/19 sertraline 100 mg tablet 100 mg PO DAILY #90 cap 04/10/19 ropinirole 2 mg tablet,extended release 24 hr 2 mg PO HS #180 tab 07/19/19 Doxazosin Mesylate [Cardura] 6 mg PO HS 12/13/19 Oxybutynin Chloride [Oxybutynin Chloride ER] 5 mg PO DAILY 12/13/19 Gabapentin [Neurontin] 600 mg PO BID #60 tab 12/15/19 Isosorbide Mononitrate [Imdur] 30 mg PO DAILY #30 cap 12/15/19 Meclizine HCl [Antivert] 25 mg PO QID PRN #40 tab 12/15/19 Melatonin 3,000 mcg PO HS PRN #30 tab 12/15/19 Metoprolol Succinate 25 mg PO DAILY #30 12/15/19 Forms: Patient Portal Registration
[2019-12-15] MEDS: METOPROLOL SUCCINATE 25 MG TABLET.SA PO SCH (09:13)
[2019-12-15] MEDS: GABAPENTIN 600 MG TABLET PO SCH (09:13)
[2019-12-15] MEDS: SERTRALINE HCL 100 MG TABLET PO SCH (09:13)
[2019-12-15] MEDS: OXYBUTYNIN CHLORIDE 5 MG TABLET PO SCH (09:14)
[2019-12-15] MEDS: ASPIRIN 325 MG TABLET.DR PO SCH (09:14)
[2019-12-15] MEDS: LEVOTHYROXINE SODIUM 175 MCG TABLET PO SCH (09:14)
[2019-12-15 12:05] VITALS: BP 124/78
== END 2019-12-15 12:27 | disposition home health service (06) | DRG 312 ==
LOC: MS 11:12 → ER 11:12 → MS 16:09
PROVIDERS: ADMIT Family Medicine; ATTEND Family Medicine
DX: Z91.81 History of falling; E78.5 Hyperlipidemia, unspecified; N18.30 Chronic kidney disease, stage 3 unspecified; I12.9 Hypertensive chronic kidney disease with stage 1 through stage 4 chronic kidney disease, or unspecified chronic kidney disease; E66.9 Obesity, unspecified; E11.22 Type 2 diabetes mellitus with diabetic chronic kidney disease; I95.1 Orthostatic hypotension; E11.42 Type 2 diabetes mellitus with diabetic polyneuropathy; Z87.891 Personal history of nicotine dependence; R26.89 Other abnormalities of gait and mobility; R53.1 Weakness; E86.0 Dehydration; R42 Dizziness and giddiness; Z68.34 Body mass index [BMI] 34.0-34.9, adult; N17.9 Acute kidney failure, unspecified; I25.10 Atherosclerotic heart disease of native coronary artery without angina pectoris; E03.9 Hypothyroidism, unspecified; Z23 Encounter for immunization